=== PATIENT | male | born 1985 | race African-American/Black ===

== ENCOUNTER 2018-10-27 22:06 | Emergency (ER) | payer BC, SELFPAY ==
[2018-10-27] MEDS ORDERED: predniSONE 20 MG TAB ONE (22:23)
== END 2018-10-27 22:26 | disposition home or self-care (01) ==
LOC: BURERS 22:06
DX: M54.5 Low back pain (principal); F17.290 Nicotine dependence, other tobacco product, uncomplicated
CPT/HCPCS: 99283; J7512